=== PATIENT | female | born 1990 | race African-American/Black ===

== ENCOUNTER 2018-06-04 14:00 | Observation (INO) | payer SELFPAY ==
[~2018-06-04] VITALS: Ht 167.6 cm; Wt 104.3 kg
[2018-06-04] MEDS ORDERED: PNV1TABL76 PO (14:16)
[2018-06-04] MEDS: LACTATED RINGERS 1,000 ML IV SCH ×2 (15:30→17:04)
[2018-06-04 15:32] LABS: CLARITY URINE CLEAR (CLEAR); COLOR URINE YELLOW (YELLOW); KETONES URINE TRACE (NEGATIVE); LEUKOCYTE ESTERASE URINE 3+ (NEGATIVE); NITRITE URINE NEGATIVE (NEGATIVE); OCCULT BLOOD URINE NEGATIVE (NEGATIVE); PROTEIN URINE NEGATIVE (NEGATIVE); SPECIFIC GRAVITY URINE 1.016 (1.005-1.030)
[2018-06-04 15:33] LABS: BASOPHILS % 0.3 % (0.0-2.0); EOSINOPHILS % 1.4 % (0.0-5.0); HEMATOCRIT. 29.7 % (36.0-48.0); HEMOGLOBIN. 9.9 g/dL (12.0-16.0); LYMPHOCYTES % 23.9 % (20.0-50.0); MEAN CORPUSCULAR HEMOGLOBIN 30.1 pg (28.0-32.0); MEAN CORPUSCULAR VOLUME 90.2 fL (81.0-99.0); MEAN PLATELET VOLUME 7.5 fl (7.4-10.4); MONOCYTES % 6.3 % (2.0-8.0); NEUTROPHILS % 68.1 % (40.0-76.0); PLATELET 340 x1000/uL (130-400); RED CELL DISTRIBUTION WIDTH 13.7 % (11.6-14.6)
[2018-06-04 15:42] LABS: CHLORIDE 105 mEq/L (98-107)
[2018-06-04] MEDS ORDERED: METRONIDAZOLE 500MG TABLET PO NR (16:50)
[2018-06-04] MEDS ORDERED: TERBUTALINE SULFATE 1MG/ML VIAL SUBCUT NR (16:51)
== END 2018-06-04 18:40 | disposition home or self-care (01) ==
LOC: L&D 14:00
PROVIDERS: ADMIT Obstetrics & Gynecology; ATTEND Obstetrics & Gynecology
DX: O21.2 Late vomiting of pregnancy (principal); O46.93 Antepartum hemorrhage, unspecified, third trimester; O62.9 Abnormality of forces of labor, unspecified; Z3A.32 32 weeks gestation of pregnancy
CPT/HCPCS: 36415; 80053; 81002; 81003; 82731; 85025; 96360; 96361; 96372; 99281; G0378; J3105; J7120

== ENCOUNTER 2018-07-25 07:36 | Inpatient (IN) | payer MEDICAID ==
[~2018-07-25] VITALS: Ht 167.6 cm; Wt 101.2 kg
[~2018-07-25 07:36] MED LIST: PNV1TABL76 PO
[2018-07-25] MEDS ORDERED: DEXT 5%/LR + PITOCIN 20UNITS/L 1,000 ML IV SCH ×2 (07:54→11:15)
[2018-07-25] MEDS ORDERED: LACTATED RINGERS 1,000 ML IV SCH ×2 (07:54→08:15)
[2018-07-25] MEDS ORDERED: LIDOCAINE HCL 1% 20ML VIAL (Pyxis) INJ INFIL SCH (08:00)
[2018-07-25] MEDS ORDERED: CARBOPROST TROMETHAMINE 250 MCG/ML AMPUL IM PRN (08:00)
[2018-07-25] MEDS ORDERED: NALOXONE HCL 0.4 MG/ML 1ML VIAL IM PRN (08:00)
[2018-07-25] MEDS ORDERED: METHYLERGONOVINE MALEATE 0.2 MG/ML IM PRN ×2 (08:00→10:30)
[2018-07-25] MEDS ORDERED: BUTORPHANOL TARTRATE 2 MG/ML VIAL IV PRN (08:00)
[2018-07-25] MEDS ORDERED: MISOPROSTOL 200MCG TABLET VG SCH (08:00)
[2018-07-25] MEDS ORDERED: PENICILLIN G POTASSIUM 5 MMU in DEXT 5% WATER 100 ML IV SCH (09:00)
[2018-07-25 09:07] LABS: INR 0.9; PARTIAL THROMBOPLASTIN TIME 26.1 sec (23.4-31.0); PROTHROMBIN TIME 9.4 sec (9.1-11.1)
[2018-07-25 09:26] LABS: CLARITY URINE CLEAR (CLEAR); COLOR URINE YELLOW (YELLOW); KETONES URINE 2+ (NEGATIVE); LEUKOCYTE ESTERASE URINE 1+ (NEGATIVE); NITRITE URINE NEGATIVE (NEGATIVE); OCCULT BLOOD URINE NEGATIVE (NEGATIVE); PROTEIN URINE NEGATIVE (NEGATIVE); SPECIFIC GRAVITY URINE 1.015 (1.005-1.030)
[2018-07-25 10:03] LABS: BASOPHILS % 0.4 % (0.0-2.0); EOSINOPHILS % 0.3 % (0.0-5.0); HEMOGLOBIN. 10.2 g/dL (12.0-16.0); LYMPHOCYTES % 22.7 % (20.0-50.0); MEAN CORPUSCULAR HEMOGLOBIN 29.3 pg (28.0-32.0); MEAN CORPUSCULAR VOLUME 88.9 fL (81.0-99.0); MEAN PLATELET VOLUME 8.4 fl (7.4-10.4); MONOCYTES % 5.2 % (2.0-8.0); NEUTROPHILS % 71.4 % (40.0-76.0); PLATELET 332 x1000/uL (130-400); RED BLOOD CELL COUNT 3.49 mill/uL (4.2-5.4); RED CELL DISTRIBUTION WIDTH 14.3 % (11.6-14.6)
[2018-07-25 10:17] LABS: *BARBITURATES SCREEN URINE NEGATIVE (NEGATIVE)
[2018-07-25 10:18] LABS: *AMPHETAMINES SCREEN URINE NEGATIVE (NEGATIVE); *BENZODIAZEPINES SCREEN URINE NEGATIVE (NEGATIVE); *COCAINE SCREEN URINE NEGATIVE (NEGATIVE); METHADONE URINE SCREEN NEGATIVE (NEGATIVE); OPIATES URINE SCREEN NEGATIVE (NEGATIVE)
[2018-07-25 10:19] LABS: CANNABINOID URINE SCREEN NEGATIVE (NEGATIVE); PHENCYCLIDINE URINE SCREEN NEGATIVE (NEGATIVE)
[2018-07-25] MEDS ORDERED: BISACODYL 10MG SUPP PR PRN (10:30)
[2018-07-25] MEDS ORDERED: RHO(D) IMMUNE GLOBULIN 300 MCG/SYR IM PRN (10:30)
[2018-07-25] MEDS ORDERED: INFLUENZA VIRUS VACCINE 0.5ML SYR IM ONE (10:30)
[2018-07-25] MEDS ORDERED: DIPHENHYDRAMINE 25MG CAPSULE PO PRN (10:30)
[2018-07-25] MEDS ORDERED: BENZOCAINE/LANOLIN/ALOE VERA SPRAY TOP PRN (10:30)
[2018-07-25] MEDS ORDERED: LANOLIN OINT 0.25 GM TUBE TOP PRN (10:30)
[2018-07-25] MEDS ORDERED: HEMORRHOIDAL SUPP PR PRN (10:30)
[2018-07-25] MEDS ORDERED: TETANUS, DIPHTHERIA, PERTUSSIS VAC/PF 0.5ML (>7YR OLD) IM ONE (10:30)
[2018-07-25] MEDS ORDERED: ACETAMINOPHEN WITH CODEINE 300/30MG TABLET PO PRN (10:30)
[2018-07-25] MEDS ORDERED: GLYCERIN/WITCH HAZEL LEAF MEDICATED PAD TOP PRN (10:30)
[2018-07-25 11:12] LABS: HEPATITIS B SURFACE ANTIGEN NEGATIVE; RUBELLA IGG 352.5 IU/mL (4.99-10)
[2018-07-25] MEDS ORDERED: OXYTOCIN 10 UNITS/ML 1ML IM SCH (11:45)
[2018-07-25 13:00] VITALS: BP 127/67
[2018-07-25] MEDS ORDERED: PENICILLIN G POTASSIUM 2.5 MMU in DEXTROSE 5% WATER 50 ML IV SCH (13:00)
[2018-07-25] MEDS ORDERED: OXYTOCIN 10 UNITS/ML 1ML ONE (13:51)
[2018-07-25] MEDS ORDERED: CARBOPROST TROMETHAMINE 250 MCG/ML AMPUL IM ONE (13:51)
[2018-07-25] MEDS: IBUPROFEN 400MG TABLET PO PRN (14:02)
[2018-07-25 17:00] VITALS: BP 105/57
[2018-07-25] MEDS: ACETAMINOPHEN WITH CODEINE 300/30MG TABLET PO PRN ×2 (17:35→21:15)
[2018-07-25 20:21] VITALS: BP 107/51
[2018-07-25] MEDS ORDERED: DOCUSATE SODIUM 100MG CAPSULE PO SCH (21:00)
[2018-07-26 04:00] VITALS: BP 98/45
[2018-07-26] MEDS: ACETAMINOPHEN WITH CODEINE 300/30MG TABLET PO PRN (06:41)
[2018-07-26 08:00] VITALS: BP 93/51
[2018-07-26 08:20] LABS: BASOPHILS % 0.4 % (0.0-2.0); EOSINOPHILS % 0.8 % (0.0-5.0); HEMATOCRIT. 29.1 % (36.0-48.0); HEMOGLOBIN. 9.5 g/dL (12.0-16.0); LYMPHOCYTES % 31.9 % (20.0-50.0); MEAN CORPUSCULAR HEMOGLOBIN 29.3 pg (28.0-32.0); MEAN CORPUSCULAR VOLUME 89.8 fL (81.0-99.0); MEAN PLATELET VOLUME 8.2 fl (7.4-10.4); MONOCYTES % 6.3 % (2.0-8.0); NEUTROPHILS % 60.6 % (40.0-76.0); PLATELET 317 x1000/uL (130-400); RED BLOOD CELL COUNT 3.23 mill/uL (4.2-5.4); RED CELL DISTRIBUTION WIDTH 14.3 % (11.6-14.6)
[2018-07-26] MEDS: PRENATAL VIT/FE FUMARATE/FA TABLET PO SCH (09:08)
[2018-07-26] MEDS: IBUPROFEN 400MG TABLET PO PRN ×2 (09:08→17:44)
[2018-07-26] MEDS: FERROUS SULFATE 325MG TABLET PO SCH ×2 (13:00→17:44)
[2018-07-26 14:31] VITALS: BP 122/61
[2018-07-26 22:00] VITALS: BP 92/50
[2018-07-27 06:00] VITALS: BP 102/53
[2018-07-27 07:30] VITALS: BP 121/66
[2018-07-27] MEDS: PRENATAL VIT/FE FUMARATE/FA TABLET PO SCH (09:27)
[2018-07-27] MEDS: FERROUS SULFATE 325MG TABLET PO SCH (09:27)
[2018-07-27] MEDS: ACETAMINOPHEN WITH CODEINE 300/30MG TABLET PO PRN (09:28)
== END 2018-07-27 12:00 | disposition home or self-care (01) | DRG 560 ==
LOC: OBSVTOIN 07:36 → L&D 07:36 → 7EST PP/OB 12:00
PROVIDERS: ADMIT Specialist; ATTEND Specialist
PROC: 0KQM0ZZ Repair Perineum Muscle, Open Approach (ICD-10-PCS; 2018-07-25)
PROC: 10E0XZZ Delivery of Products of Conception, External Approach (ICD-10-PCS; principal; 2018-07-25 09:34)
DX: O99.52 Diseases of the respiratory system complicating childbirth (principal); J40 Bronchitis, not specified as acute or chronic; O99.02 Anemia complicating childbirth; Z37.0 Single live birth; Z3A.40 40 weeks gestation of pregnancy; Z91.040 Latex allergy status; Z91.018 Allergy to other foods; O70.1 Second degree perineal laceration during delivery
CPT/HCPCS: 36415; 76805; 80305; 81003; 85025; 85610; 85730; 86592; 86703; 86762; 86850; 86900; 87340; J2540; J2590; J3490; J7060; J7120